=== PATIENT | female | born 1980 ===

== ENCOUNTER 2016-12-11 13:34 | Emergency (ER) | payer SELFPAY ==
[2016-12-11 15:00] LABS: RBC URINE 47 /hpf (0-3); URINE BILIRUBIN NEGATIVE (NEGATIVE); URINE BLOOD 3+ (NEGATIVE); URINE COLOR Yellow (YELLOW); URINE GLUCOSE (UA) NORMAL (Normal); URINE KETONE 2+ mg/dL (NEGATIVE); URINE LEUKOCYTE ESTERASE TRACE Leu/uL (Negative); URINE PROTEIN NEGATIVE (NEGATIVE); URINE UROBILINOGEN NORMAL mg/dL (0.2-1.0); WBC URINE 17 /hpf (0-5)
--- NOTE | 2016-12-11 15:10 | C.PDOC ---
History Of Present Illness 36 year old female presents to the ED with complaints of suprapubic pain that is pressure like in nature for three days. She notes she was seen by PMD yesterday and diagnosed with a UTI. Patient was prescribed macrobid and took two doses but was still in pain. Patient notes pain radiates to back and denies any fever, chills, nausea, or vomiting. Time Seen by Provider: 12/11/16 14:28 Chief Complaint (Nursing): Abdominal Pain History Per: Patient History/Exam Limitations: no limitations Onset/Duration Of Symptoms: Days (3 days ) Current Symptoms Are (Timing): Still Present Quality Of Discomfort: Pressure Associated Symptoms: denies: Fever, Chills, Nausea, Vomiting, Diarrhea Recent travel outside of the [place]: No Abnormal Vaginal Bleeding: No Past Medical History Reviewed: Historical Data, Nursing Documentation, Vital Signs Vital Signs: Last Vital Signs Temp 98.3 F 12/11/16 15:22 Pulse 57 L 12/11/16 15:22 Resp 20 12/11/16 15:22 BP 101/61 12/11/16 15:22 Pulse Ox 98 12/11/16 17:17 Family History: States: Unknown Family Hx - Social History Hx Alcohol Use: No Hx Substance Use: No - Immunization History Hx Tetanus Toxoid Vaccination: No Hx Influenza Vaccination: No Hx Pneumococcal Vaccination: No Review Of Systems Constitutional: Negative for: Fever, Chills, Sweats Cardiovascular: Negative for: Chest Pain, Palpitations Gastrointestinal: Positive for: Abdominal Pain (suprapubic pain). Negative for : Nausea, Vomiting, Diarrhea Genitourinary: Positive for: Dysuria. Negative for: Frequency, Vaginal Discharge, Vaginal Bleeding Skin: Negative for: Rash Neurological: Negative for: Weakness, Numbness, Headache, Dizziness Physical Exam - Physical Exam Appears: Non-toxic, No Acute Distress Skin: Warm, Dry Head: Atraumatic, Normacephalic Eye(s): bilateral: Normal Inspection Oral Mucosa: Moist Neck: Normal ROM, Supple Chest: Symmetrical, No Deformity Cardiovascular: Rhythm Regular Respiratory: No Rales, No Rhonchi, No Stridor, No Wheezing Gastrointestinal/Abdominal: Soft, Tenderness (suprapubic tenderness), No Distention, No Guarding, No Rebound Back: No CVA Tenderness Extremity: Normal ROM, No Tenderness Neurological/Psych: Oriented x3, Normal Speech ED Course And Treatment O2 Sat by Pulse Oximetry: 98 (room air ) Medical Decision Making Medical Decision Making: UA ordered. Patient treated with Ibuprofen 600 mg PO. UA negative for and shows UTI. I explained results to patient who is now feeling mildly better. Abdomen is soft and minimally tender to suprapubic region, no guarding or rebound. Patient has no fever or CVA tenderness. Vital signs stable. Low suspicion for surgical pathology. Patient advised to take NSAID and pyridium for discomfort of UTI and to continue antibiotic Disposition Counseled Patient/Family Regarding: Diagnosis, Need For Followup, Rx Given - Disposition Referrals: [facility] [Outside] [facility] [Outside] Disposition: HOME/ ROUTINE Disposition Time: 15:07 Condition: STABLE Additional Instructions: Continuar con el antibitico hasta completarse [place] pyridium y motrin segn sea necesario para el dolor Prescriptions: Ibuprofen [Motrin] 600 mg PO Q8 #30 tab Phenazopyridine [Pyridium] 200 mg PO BID #6 tab Instructions: Urinary Tract Infection in Women (DC) Print Language: SLOVAK - POA Present On Arrival: None - Clinical Impression Clinical Impression: UTI (urinary tract infection) - Scribe Statement The provider has reviewed the documentation as recorded by the Scribe Rossana Castellanos All medical record entries made by the Scribe were at my direction and personally dictated by me. I have reviewed the chart and agree that the record accurately reflects my personal performance of the history, physical exam, medical decision making, and the department course for this patient. I have also personally directed, reviewed, and agree with the discharge instructions and disposition.
[2016-12-11 15:25] VITALS: BP 101/61; PULSE 57; RESP 20; TEMP 98.3
[2016-12-11 17:13] VITALS: O2SAT 98
== END 2016-12-11 15:22 | disposition home or self-care (01) ==
LOC: C.ER 13:34
DX: N39.0 Urinary tract infection, site not specified (principal)